=== PATIENT | male | born 1935 | race Caucasian/White ===

== ENCOUNTER → 2017-01-15 | Outpatient (CLI) | payer MEDICARE, BC ==
[~2017-01-15] MED LIST: ALMACONE CHEWA1 EACH PO; CALCIUM + D3 E1 EACH PO; DAILY MULTIPLE1 EAC1 PO; PYRIDIUM200 MG PO; REGLAN10 MG PO; ZANTAC (NON-FO150 MG PO
[2017-01-15 13:55] LABS: HEMATOCRIT 34.7 % (33.0-50.0); HEMOGLOBIN 11.1 g/dL (11.0-16.0); MCH 27.3 pg (27.0-34.0); MCV 85.3 fl (83.0-98.0); MPV 9.1 fl (9.4-12.4); RBC 4.07 M/uL (3.50-5.50); RDW-CV 13.2 % (11.9-14.6)
[2017-01-15 14:03] LABS: INR - (THERAPEUTIC) 1.2 (0.9-1.1); PROTIME 12.7 SECONDS (9.6-11.1)
[2017-01-15 14:07] LABS: ALBUMIN 2.4 gm/dL (3.5-5.0); ANION GAP 15.6 (10.0-19.0); BLOOD UREA NITROGEN 18 mg/dL (6-24); CALCIUM 8.5 mg/dL (8.5-10.5); CHLORIDE 105 mMol/L (96-110); CO2 25 mMol/L (22-32); CREATININE 1.1 mg/dL (0.6-1.3); ESTIMATED GFR (MDRD EQUATION) > 60; PHOSPHORUS 2.7 mg/dL (2.5-4.9); POTASSIUM 3.6 mMol/L (3.7-5.1); SODIUM 142 mMol/L (135-145)
== END | disposition disaster alternative care site (69) ==
LOC: GOPD 01-14 09:30
PROVIDERS: Radiology Diagnostic Radiology
PROC: 0BBL3ZX Excision of Left Lung, Percutaneous Approach, Diagnostic (ICD-10-PCS; principal; 2017-01-15)
DX: R91.8 Other nonspecific abnormal finding of lung field (principal)
CPT/HCPCS: J2001; J7030